=== PATIENT | male | born 1960 | race Caucasian/White ===

== ENCOUNTER 2016-07-21 12:09 | Emergency (ER) | payer BC ==
[~2016-07-21 12:09] MED LIST: ACIPHEX20 MG; CYCLOBENZAPRINE5 M1 PO; KEFLEX PO; MEDROL4 M2 PO; NEXIUM10 MG PO; NORCO 5-325 TA1 EACH PO; NORCO 5/325 TAB1 TAB PO; NORCO 5/3251 TAB PO; OMEPRAZOLE20 M1 PO
[2016-07-21] MEDS ORDERED: MAVIK2 M1 PO (13:58)
[2016-07-21] MEDS ORDERED: CALAN SR180 M1 PO (13:59)
[2016-07-21] MEDS ORDERED: CYCLOBENZAPRINE5 M1 PO (14:12)
[2016-07-21] MEDS ORDERED: NORCO 5-325 TA1 EACH PO (14:12)
[2016-11-26] MEDS ORDERED: CYCLOBENZAPRINE5 M1 PO (16:04)
[2016-11-26] MEDS ORDERED: MOBIC7.5 M2 PO (16:04)
[2016-11-26] MEDS ORDERED: TARKA PO (16:05)
[2016-11-26] MEDS ORDERED: AUGMENTIN 875-1 EAC2 PO (16:06)
[2016-11-26] MEDS ORDERED: CLEOCIN HCL300 M1 PO (19:55)
== END 2016-07-21 14:49 ==
LOC: EDMED 12:09
DX: M54.5 Low back pain (principal); I10 Essential (primary) hypertension; Z98.890 Other specified postprocedural states; Z79.899 Other long term (current) drug therapy
CPT/HCPCS: J1885

== ENCOUNTER 2016-08-05 11:37 | Emergency (ER) | payer BC ==
[~2016-08-05 11:37] MED LIST changes: +CALAN SR180 M1 PO; +MAVIK2 M1 PO
[2016-08-05] MEDS ORDERED: NORCO 5-325 TA1 EACH PO (14:06)
[2016-08-05] MEDS ORDERED: CYCLOBENZAPRINE5 M1 PO (14:06)
[2016-11-26] MEDS ORDERED: CYCLOBENZAPRINE5 M1 PO (16:04)
[2016-11-26] MEDS ORDERED: MOBIC7.5 M2 PO (16:04)
[2016-11-26] MEDS ORDERED: TARKA PO (16:05)
[2016-11-26] MEDS ORDERED: AUGMENTIN 875-1 EAC2 PO (16:06)
[2016-11-26] MEDS ORDERED: CLEOCIN HCL300 M1 PO (19:55)
== END 2016-08-05 14:12 ==
LOC: EDMED 11:37
DX: M54.5 Low back pain (principal); I10 Essential (primary) hypertension; Z87.891 Personal history of nicotine dependence; Z79.899 Other long term (current) drug therapy
CPT/HCPCS: J1885; J2270